=== PATIENT | male | born 1985 | race Caucasian/White ===

== ENCOUNTER 2020-06-18 15:05 | Inpatient (IN) | payer MEDICAID ==
[~2020-06-18] VITALS: Ht 185.4 cm; Wt 80.4 kg
--- NOTE | 2020-06-18 15:31 | NUR ---
EKG IN TRIAGE
--- NOTE | 2020-06-18 16:00 | NUR ---
PT PLACED ON ALL ROOM MONITORING. IV SL PLACED. CALL LIGHT WITHIN REACH.
[2020-06-18] MEDS ORDERED: ACETAMINOPHEN 500 MG TABLET ONE (16:25)
[2020-06-18 16:40] LABS: MEAN CORPUSCULAR HEMOGLOBIN 33.5 pg (27.5-34.5); MEAN CORPUSCULAR HGB CONC 35.5 g/dL (33.2-36.2); MEAN PLATELET VOLUME 7.2 fL (7.4-10.4); PLATELET COUNT 224 x10^3/uL (130-400); RED BLOOD COUNT 3.98 x10^6/uL (4.38-5.82); RED CELL DISTRIBUTION WIDTH 12.5 % (9.4-14.8)
--- NOTE | 2020-06-18 16:40 | NUR ---
LABS DRAWN INCLUDING BC X 2. XR COMPLETED. PT MEDICATED PER ERP ORDER, NS BOLUS INFUSING. PT AND FRIEND UPDATED ON POC. CALL LIGHT WITHIN REACH.
[2020-06-18 16:49] LABS: CHLORIDE 94 mmol/L (98-107)
[2020-06-18] MEDS ORDERED: SODIUM CHLORIDE FLUSH 10ML SYR IVF ONE (17:00)
[2020-06-18] MEDS ORDERED: SODIUM CHLORIDE 0.9% 1,000ML IVBOLUS ONE (17:00)
[2020-06-18] MEDS ORDERED: ACETAMINOPHEN 500 MG TABLET PO ONE (17:00)
--- NOTE | 2020-06-18 17:03 | NUR ---
PT TO CT.
[2020-06-18 17:07] LABS: ALBUMIN 3.5 g/dL (3.4-5.0); ANION GAP 14 mmol/L (5-15); CALCIUM 8.7 mg/dL (8.5-10.1)
--- NOTE | 2020-06-18 17:12 | NUR ---
PT BACK FROM CT.
[2020-06-18 17:15] LABS: ALANINE AMINOTRANSFERASE 72 U/L (12-78); ALKALINE PHOSPHATASE 76 U/L (45-117); BILIRUBIN,TOTAL 1.3 mg/dL (0.2-1.0); CREATININE 0.73 mg/dL (0.7-1.3); TOTAL PROTEIN 7.9 g/dL (6.4-8.2)
[2020-06-18 17:21] LABS: C-REACTIVE PROTEIN, QUANT > 19.00 mg/dL (0.02-0.49)
[2020-06-18 17:28] LABS: MD YES
[2020-06-18 17:29] LABS: BAND#(MANUAL) 1.25 x10^3/uL; BANDS%(MANUAL) 11 % (0-7); BASOS#(MANUAL) 0.11 x10^3/uL (0-0.1); BASOS% (MANUAL) 1 % (0-1); LYMPH#(MANUAL) 0.68 x10^3/uL (1-3.4); LYMPHS% (MANUAL) 6 % (22-44); METAMYELOCYTES# (MANUAL) 0.23 x10^3/uL (0-0); METAMYELOCYTES% (MANUAL) 2 % (0-1); MONOS#(MANUAL) 0.46 x10^3/uL (0.3-2.7); MONOS% (MANUAL) 4 % (2-9); SEG#(MANUAL) 8.66 x10^3/uL (1.8-6.8); SEGS% (MANUAL) 76 % (42-75)
[2020-06-18 17:33] LABS: <PLATELET ESTIMATE> ADEQUATE; <PLT MORPHOLOGY> NORMAL PLT MORPH; <RBC MORPHOLOGY> NORMAL
--- NOTE | 2020-06-18 17:44 | NUR ---
ADD ON ORDER FOR MRI. MRI SCREENING COMPLETED. PT AND FRIEND INFORMED. PT TO MRI.
[2020-06-18] MEDS ORDERED: NS + 40MEQ KCL 1,000 ML IV ONE (17:53)
--- NOTE | 2020-06-18 17:54 | NUR ---
SEPSIS PINK SHEET COMPLETED. DISCUSSED IVF AND ANTIBIOTICS WITH ERP. CONTINUE TO LOOK FOR SOURCE OF INFECTION/NO SEPTIC SHOCK AT THIS TIME. PER DR SALMERON, NO 30CC/KG IVF BOLUS. PT RECEIVED 1 LITER NS AND HAS ORDER FOR NS +KCL TO INFUSE AT 25OCC/HR.
[2020-06-18] MEDS ORDERED: GADOTERATE 7.5 MMOL/15 ML VIAL ONE (18:38)
--- NOTE | 2020-06-18 18:55 | NUR ---
Significant others contact juhi Johnston) [phone]
--- NOTE | 2020-06-18 18:56 | NUR ---
Rec'd report from Lara patient at MRI at the moment
[2020-06-18] MEDS ORDERED: PIPERACILLIN/TAZO/PMX 3.375GM 50 ML IV ONE (19:00)
--- NOTE | 2020-06-18 19:00 | NUR ---
REPORT TO CHERYL, TRANSFER OF CARE AT THIS TIME.
[2020-06-18] MEDS ORDERED: PIPERACILLIN/TAZO/PMX 3.375GM 50 ML ONE (19:41)
[2020-06-18] MEDS ORDERED: MAGNESIUM SULFATE 1 GM, THIAMINE 100 MG, FOLIC ACID 1 MG, MVI ADULT 10 ML in SODIUM CHL... IV ONE (20:00)
[2020-06-18] MEDS: NS + 40MEQ KCL 1,000 ML IV SCH (20:05)
[2020-06-18 20:10] LABS: MICROSCOPIC INDICATED
[2020-06-18] MEDS ORDERED: IBUPROFEN 600 MG TABLET ONE (20:18)
[2020-06-18] MEDS ORDERED: MAGNESIUM SULFATE 1 GM, THIAMINE 100 MG, FOLIC ACID 1 MG in SODIUM CHLORIDE 0.9% 1,000 ML IV ONE (20:25)
[2020-06-18] MEDS ORDERED: IBUPROFEN 600 MG TABLET PO ONE (20:30)
[2020-06-18] MEDS ORDERED: VANCOMYCIN PER PHARMACY MC PRN ×2 (20:30→22:00)
[2020-06-18] MEDS ORDERED: VANCOMYCIN 1,900 MG in SODIUM CHLORIDE 0.9% 250 ML IV ONE (20:30)
[2020-06-18] MEDS ORDERED: OMNIPAQUE 350 MG/ML, 100ML BOTTLE ONE (21:18)
--- NOTE | 2020-06-18 21:28 | NUR ---
Patient resting comfortably at this time. Patient just returned from CT, requested ice for left ankle hoping that might help his pain. Ice applied to left ankle. Patient medicated per AUG. Waiting for CT results to come back at this time. VSS. Call light within reach
[2020-06-18] MEDS ORDERED: LABETALOL 5MG/ML, 20ML IVPush PRN (22:00)
[2020-06-18] MEDS ORDERED: DOCUSATE 100 MG CAPSULE PO PRN (22:00)
[2020-06-18] MEDS ORDERED: SODIUM CHLORIDE 0.9% 1,000 ML IV SCH (22:00)
[2020-06-18] MEDS ORDERED: GUAIFENESIN/DM 200-20MG, 10ML UDC PO PRN (22:00)
[2020-06-18] MEDS ORDERED: ONDANSETRON 2MG/ML, 2ML IVPush PRN (22:00)
[2020-06-18] MEDS ORDERED: ACETAMINOPHEN 325 MG TABLET PO PRN (22:00)
[2020-06-18 22:57] VITALS: BP 131/62
[2020-06-19] MEDS: HEPARIN 5,000 UNITS/ML, 1ML SQ SCH ×3 (00:20→16:47)
[2020-06-19] MEDS: NS + 40MEQ KCL 1,000 ML IV SCH ×2 (01:06→06:01)
[2020-06-19 01:55] VITALS: BP 131/83
[2020-06-19] MEDS: AMPICILLIN/SULBACTAM 3 GM in SODIUM CHLORIDE 0.9% 100 ML IV SCH ×4 (02:40→20:49)
[2020-06-19 05:29] LABS: BASOPHILS % (AUTO) 1 % (0-1); EOSINOPHILS % (AUTO) 0 % (1-7); LYMPHOCYTES % (AUTO) 13 % (22-44); MEAN CORPUSCULAR HEMOGLOBIN 33.6 pg (27.5-34.5); MEAN CORPUSCULAR HGB CONC 35.4 g/dL (33.2-36.2); MONOCYTES % (AUTO) 8 % (2-9); NEUTROPHILS % (AUTO) 79 % (42-75); PLATELET COUNT 163 x10^3/uL (130-400); RED BLOOD COUNT 3.69 x10^6/uL (4.38-5.82); RED CELL DISTRIBUTION WIDTH 12.5 % (9.4-14.8)
[2020-06-19 05:30] LABS: MD NO
[2020-06-19 05:43] LABS: ANION GAP 7 mmol/L (5-15); CALCIUM 7.8 mg/dL (8.5-10.1); CHLORIDE 104 mmol/L (98-107)
[2020-06-19 05:45] LABS: CREATININE 0.76 mg/dL (0.7-1.3)
[2020-06-19] MEDS: VANCOMYCIN 1,400 MG in SODIUM CHLORIDE 0.9% 250 ML IV SCH ×3 (06:01→22:13)
[2020-06-19 06:34] VITALS: BP 128/80
[2020-06-19] MEDS: NICOTINE 14MG/24 HR PATCH.TD24 TD SCH (09:27)
[2020-06-19] MEDS ORDERED: MAGNESIUM SULFATE PMX 2GM/50ML 50 ML IV ONE (11:00)
[2020-06-19] MEDS ORDERED: POTASSIUM CHLORIDE 20 MEQ in SODIUM CHLORIDE 0.9% 250 ML IV ONE (11:00)
[2020-06-19] MEDS ORDERED: GADOTERATE 7.5 MMOL/15 ML VIAL ONE (12:31)
[2020-06-19 13:30] VITALS: BP 142/84
[2020-06-19 17:00] LABS: HCT (SEDRATE) 34.9 % (39.2-51.8)
[2020-06-19] MEDS ORDERED: ELVI1TAB3 PO (17:02)
[2020-06-19 20:07] VITALS: BP 139/81
[2020-06-20] MEDS: HEPARIN 5,000 UNITS/ML, 1ML SQ SCH ×3 (01:11→18:00)
[2020-06-20 01:22] VITALS: BP 138/85
[2020-06-20] MEDS: AMPICILLIN/SULBACTAM 3 GM in SODIUM CHLORIDE 0.9% 100 ML IV SCH ×4 (03:02→21:04)
[2020-06-20 05:49] LABS: BASOPHILS % (AUTO) 1 % (0-1); EOSINOPHILS % (AUTO) 0 % (1-7); LYMPHOCYTES % (AUTO) 18 % (22-44); MEAN CORPUSCULAR HEMOGLOBIN 33.9 pg (27.5-34.5); MEAN CORPUSCULAR HGB CONC 35.9 g/dL (33.2-36.2); MEAN PLATELET VOLUME 8.3 fL (7.4-10.4); MONOCYTES % (AUTO) 10 % (2-9); NEUTROPHILS % (AUTO) 71 % (42-75); PLATELET COUNT 148 x10^3/uL (130-400); RED BLOOD COUNT 3.36 x10^6/uL (4.38-5.82)
[2020-06-20 05:57] LABS: MD NO
[2020-06-20 05:58] LABS: ALBUMIN 2.5 g/dL (3.4-5.0); ANION GAP 6 mmol/L (5-15); CHLORIDE 104 mmol/L (98-107)
[2020-06-20 05:59] LABS: CREATININE 0.64 mg/dL (0.7-1.3)
[2020-06-20] MEDS: VANCOMYCIN 1,400 MG in SODIUM CHLORIDE 0.9% 250 ML IV SCH (06:37)
[2020-06-20 07:50] VITALS: BP 135/90
[2020-06-20] MEDS: NICOTINE 14MG/24 HR PATCH.TD24 TD SCH (08:10)
[2020-06-20] MEDS ORDERED: GENVOYA PO SCH (09:00)
[2020-06-20 13:08] VITALS: BP 130/80
[2020-06-20] MEDS: VANCOMYCIN 1,600 MG in SODIUM CHLORIDE 0.9% 250 ML IV SCH (16:23)
[2020-06-20 19:43] VITALS: BP 145/84
[2020-06-21] MEDS: VANCOMYCIN 1,600 MG in SODIUM CHLORIDE 0.9% 250 ML IV SCH ×3 (00:41→17:24)
[2020-06-21 00:43] VITALS: BP 135/80
[2020-06-21] MEDS: HEPARIN 5,000 UNITS/ML, 1ML SQ SCH ×3 (03:17→18:40)
[2020-06-21] MEDS: AMPICILLIN/SULBACTAM 3 GM in SODIUM CHLORIDE 0.9% 100 ML IV SCH ×4 (03:43→23:32)
[2020-06-21 06:17] LABS: BASOPHILS % (AUTO) 1 % (0-1); EOSINOPHILS % (AUTO) 1 % (1-7); LYMPHOCYTES % (AUTO) 23 % (22-44); MEAN CORPUSCULAR HEMOGLOBIN 33.4 pg (27.5-34.5); MEAN CORPUSCULAR HGB CONC 35.3 g/dL (33.2-36.2); MEAN PLATELET VOLUME 8.2 fL (7.4-10.4); MONOCYTES % (AUTO) 14 % (2-9); NEUTROPHILS % (AUTO) 62 % (42-75); PLATELET COUNT 186 x10^3/uL (130-400); RED BLOOD COUNT 3.52 x10^6/uL (4.38-5.82); RED CELL DISTRIBUTION WIDTH 12.3 % (9.4-14.8)
[2020-06-21 06:21] LABS: ALBUMIN 2.6 g/dL (3.4-5.0); ANION GAP 6 mmol/L (5-15); CALCIUM 8.2 mg/dL (8.5-10.1); CHLORIDE 107 mmol/L (98-107); CREATININE 0.59 mg/dL (0.7-1.3)
[2020-06-21 06:35] LABS: MD NO
[2020-06-21] MEDS: NICOTINE 14MG/24 HR PATCH.TD24 TD SCH (07:37)
[2020-06-21 08:20] VITALS: BP 136/83
[2020-06-21] MEDS: POTASSIUM CHLORIDE 20 MEQ TAB.ER.PRT PO SCH (11:50)
[2020-06-21 12:38] VITALS: BP 141/86
[2020-06-21 19:07] VITALS: BP 142/81
[2020-06-21] MEDS: GENVOYA HOMEMEDPO SCH (21:08)
[2020-06-22 00:28] VITALS: BP 124/74
[2020-06-22] MEDS: VANCOMYCIN 1,600 MG in SODIUM CHLORIDE 0.9% 250 ML IV SCH ×2 (01:31→09:35)
[2020-06-22] MEDS: HEPARIN 5,000 UNITS/ML, 1ML SQ SCH ×3 (03:09→21:01)
[2020-06-22] MEDS: AMPICILLIN/SULBACTAM 3 GM in SODIUM CHLORIDE 0.9% 100 ML IV SCH ×2 (05:25→11:40)
[2020-06-22 06:01] LABS: CHLORIDE 107 mmol/L (98-107)
[2020-06-22 06:05] LABS: ANION GAP 6 mmol/L (5-15); CALCIUM 8.1 mg/dL (8.5-10.1); CREATININE 0.55 mg/dL (0.7-1.3)
[2020-06-22 07:43] VITALS: BP 112/64
[2020-06-22] MEDS: POTASSIUM CHLORIDE 20 MEQ TAB.ER.PRT PO SCH ×2 (08:27→21:01)
[2020-06-22] MEDS: NICOTINE 14MG/24 HR PATCH.TD24 TD SCH (08:28)
[2020-06-22 13:24] VITALS: BP 142/91
[2020-06-22] MEDS ORDERED: [UNRECOGNIZED DRUG - OTHER] PO SCH (15:36)
[2020-06-22] MEDS: LINEZOLID 600 MG TABLET PO SCH (16:46)
[2020-06-22 18:37] VITALS: BP 144/83
[2020-06-22] MEDS: GENVOYA HOMEMEDPO SCH (21:01)
[2020-06-23 00:07] VITALS: BP 118/80
[2020-06-23] MEDS: HEPARIN 5,000 UNITS/ML, 1ML SQ SCH (05:05)
[2020-06-23] MEDS: LINEZOLID 600 MG TABLET PO SCH (05:06)
[2020-06-23 06:27] LABS: CHLORIDE 106 mmol/L (98-107)
[2020-06-23 06:33] LABS: ANION GAP 7 mmol/L (5-15); CALCIUM 8.3 mg/dL (8.5-10.1)
[2020-06-23 07:21] VITALS: BP 131/73
[2020-06-23] MEDS: NICOTINE 14MG/24 HR PATCH.TD24 TD SCH (09:28)
[2020-06-23] MEDS: POTASSIUM CHLORIDE 20 MEQ TAB.ER.PRT PO SCH (09:28)
[2020-06-23] MEDS ORDERED: LINE600T15 PO (09:45)
== END 2020-06-23 10:55 | disposition home or self-care (01) | DRG 872 ==
LOC: ED 16:59 → EDIP 21:48 → 4NE 22:53 → 3N 06-20 18:16 → DCLOUNGE 06-23 10:51
PROVIDERS: ADMIT Family Medicine; ATTEND Hospitalist
DX: A41.9 Sepsis, unspecified organism (principal); E87.1 Hypo-osmolality and hyponatremia; L03.116 Cellulitis of left lower limb; D63.8 Anemia in other chronic diseases classified elsewhere; E83.42 Hypomagnesemia; E87.6 Hypokalemia; R65.20 Severe sepsis without septic shock; Z91.81 History of falling; W18.39XA Other fall on same level, initial encounter; Y93.89 Activity, other specified; Y92.89 Other specified places as the place of occurrence of the external cause; Y99.8 Other external cause status; G89.29 Other chronic pain; F17.210 Nicotine dependence, cigarettes, uncomplicated; F10.129 Alcohol abuse with intoxication, unspecified
CPT/HCPCS: 36415; 70450; 71045; 71275; 72156; 72157; 80048; 80053; 80069; 80202; 80320; 81001; 83605; 83735; 83930; 83935; 84145; 84550; 85025; 85651; 86140; 87040; 93005; G0378; J0295; J1644; J2543; J3370; J3411; J3475; J3480; Q9967; A9575; G0480; J7030; J7050

== ENCOUNTER 2020-08-28 06:15 | Emergency (ER) | payer MEDICAID ==
[~2020-08-28] VITALS: Ht 185.4 cm; Wt 78.6 kg
[~2020-08-28 06:15] MED LIST: ELVI1TAB3 PO; LINE600T15 PO
[2020-08-28 07:01] LABS: BASOPHILS % (AUTO) 1 % (0-1); EOSINOPHILS % (AUTO) 0 % (1-7); LYMPHOCYTES % (AUTO) 22 % (22-44); MEAN CORPUSCULAR HEMOGLOBIN 33.3 pg (27.5-34.5); MEAN PLATELET VOLUME 6.4 fL (7.4-10.4); MONOCYTES % (AUTO) 6 % (2-9); NEUTROPHILS % (AUTO) 71 % (42-75); PLATELET COUNT 386 x10^3/uL (130-400); RED BLOOD COUNT 4.38 x10^6/uL (4.38-5.82)
--- NOTE | 2020-08-28 07:02 | NUR ---
REPORT FROM EDITA VERMA. ASSUMED CARE OF PT
[2020-08-28 07:06] LABS: MICROSCOPIC NOT IND
[2020-08-28 07:10] LABS: ALBUMIN 3.7 g/dL (3.4-5.0); ANION GAP 5 mmol/L (5-15); CALCIUM 8.4 mg/dL (8.5-10.1); CHLORIDE 113 mmol/L (98-107)
--- NOTE | 2020-08-28 07:14 | NUR ---
PT IS A 35M WITH COMPLAINTS OF RED, SWOLLEN RIGHT TESTICLE. DENIES TRAUMA. HISTORY OF HIV. PT TO [facility] VIA [employer].
[2020-08-28 07:15] LABS: MD NO
--- NOTE | 2020-08-28 07:39 | NUR ---
PT IS BACK FROM [facility]. BP, SP02 MONITORS IN PLACE AND CALL LIGHT WITHIN REACH.
[2020-08-28 08:43] VITALS: BP 111/74
--- NOTE | 2020-08-28 08:44 | NUR ---
Patient/Caregiver given discharge instructions and they have confirmed that they understand the instructions. Patient ambulatory with steady gait.
== END 2020-08-28 08:45 | disposition home or self-care (01) ==
LOC: ED 06:33
DX: N45.1 Epididymitis (principal)
CPT/HCPCS: 36415; 76870; 80048; 81003; 82040; 85025; 99284